=== PATIENT | male | born 1945 | race Caucasian/White ===

== ENCOUNTER 2021-10-25 17:50 | Observation (INO) ==
--- NOTE | 2021-10-25 17:52 | Emergency Department Note ---
HPI General Chief complaint: Altered Mental Status Stated complaint: Confusion, falls, failure to thrive Time Seen by Provider: 10/25/21 17:52 Source: patient and family Mode of arrival: ambulatory Limitations: altered mental status History of Present Illness HPI Narrative: 76-year-old male with past medical history of Parkinson's disease, BPH, and dementia presenting with frequent falls and confusion. Patient is here with his durable power of workers compensation attorney and Adult Protective Services who have been trying to help him at home. For the last few months he has had frequent falls and increasing visual and auditory hallucinations. He also has been eating and drinking less. His power of workers compensation attorney states that he tries to bring in food a few times a week but the patient seems to be slowly getting worse. They are concerned that he cannot perform his ADLs at home and may need placement in a facility. No report of any recent fever, cough, vomiting, or chest pain. He is not on anticoagulation. Patient denies pain anywhere and has no complaints currently. Related Data Home Medications Medication Instructions Recorded Confirmed carbidopa ER 25 mg-levodopa 100 mg 1 tab PO QHS #60 tabs 12/15/18 09/27/21 tablet,extended release carbidopa 25 mg-levodopa 100 mg 1.5 tab PO .COMPLEX #405 tabs 11/17/20 09/27/21 tablet acetaminophen 500 mg tablet 250 mg PO Q6H PRN 12/26/20 09/27/21 (Tylenol Extra Strength) rivastigmine tartrate 1.5 mg 1.5 mg PO BID 08/17/21 09/27/21 capsule Previous Rx's Medication Instructions Recorded finasteride 5 mg tablet 5 mg PO QDAY #90 tabs 07/12/21 tamsulosin 0.4 mg capsule 0.4 mg PO BID #180 caps 07/12/21 zolpidem 10 mg tablet 10 mg PO QHS #90 tabs 08/28/21 Allergies Allergy/AdvReac Type Severity Reaction Status Date / Time omeprazole [From Prilosec] AdvReac Unknown Unknown Verified 10/25/21 17:54 Pineapple AdvReac Unknown Throat Verified 10/25/21 17:54 Swelling and Hives Review of Systems ROS ROS Narrative: Narrative: Limitations: ROS unobtainable due to patients medical condition Cardiovascular: Denies chest pain Gastrointestinal: Denies abdominal pain Genitourinary: Denies dysuria Neurological: Denies headache PFSH Narrative Patient History Narrative: Narrative: Medical/Surgical/Family History All Active Problems (Updated 10/25/21 @ 19:29 by Andres Candelaria MD) Falls (Acute) Decrease in appetite (Acute) Delusional disorder (Acute) Parkinson's disease (Acute) 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) Basal cell carcinoma of back (Chronic 11/16/10) 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) Chest pain (Chronic) Collagenous colitis (Chronic) Depression (Chronic) Dyspnea (Chronic) Edema (Chronic) Erectile dysfunction (Chronic) Fracture of finger, closed (Chronic) Headache (Chronic) Hemorrhoids (Chronic) Hoarseness (Chronic) Hypertension, essential (Chronic) Insomnia (Chronic) Kidney stones (Chronic) Laryngopharyngeal reflux disease (Chronic) Obstructive uropathy (Chronic) Orthostasis (Chronic) Proctitis (Chronic) Rectal fissure (Chronic) Rectal leakage (Chronic) Sarcoidosis (Chronic) Spleen injury (Chronic) 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) Tendinitis (Chronic) Tinnitus (Chronic) Myxomatous mitral valve (Chronic) Stress (Chronic) Right buttock pain (Chronic) Muscle spasm of right lower extremity (Chronic) Skin lesion (Chronic) Spasm of muscle of lower back (Chronic) Skin cancer (Chronic) Pelvic fracture (Chronic) Seborrheic keratosis (Chronic) Anxiety (Chronic) Colon adenoma (Chronic) Memory Loss (Chronic) Slurred speech (Chronic) Change in Voice (Chronic) Balance disorder (Chronic) Gait instability (Chronic) Tremor (Chronic) Labile blood pressure (Chronic) CVA (cerebral vascular accident) (Chronic) Weight loss (Chronic) Parkinson disease (Chronic) Easy bruising (Chronic) Actinic keratoses (Chronic) Cold intolerance (Chronic) Orthostasis (Chronic) Increased urinary frequency (Chronic) Medicare annual wellness visit, subsequent (Chronic) Labile hypertension (Chronic) Bilateral buttock pain (Chronic) Lumbosacral radiculopathy due to degenerative joint disease of spine (Chronic) Acute low back pain due to spinal disorder (Chronic) Syncope and collapse (Acute) Radiculopathy, lumbar region (Acute) Glaucoma (Acute) Lumbar stenosis with neurogenic claudication (Acute) Labile blood pressure (Chronic) Hypotension (Acute) BPH loc w urin obs/LUTS (Acute) Medical History Actinic keratoses 3 AK's treated today, tolerated well. Verbal consent obtained after discussion of risks, benefits, and alternatives. Basal cell carcinoma of back (11/16/10) Right scapula residual basal cell carcinoma; negative margins of resection. Also tip of nose in 12/10/2013. Bilateral buttock pain Chest pain Cold intolerance Collagenous colitis Depression Dyspnea Easy bruising Edema Erectile dysfunction Fracture of finger, closed 3 fingers Glaucoma Headache (09/07/2014-Bakari) Hemorrhoids Hoarseness Hypertension, essential Increased urinary frequency Secondary to Parkinson's disease. Patient needs to establish with a new urologist. Will refer to Dr. Bradley. Insomnia Kidney stones (09/07/14-Bakari) Laryngopharyngeal reflux disease Patient would like to change from Zantac to Pepcid due to the recall. Lumbar stenosis with neurogenic claudication Status post epidural steroid injection with Dr. Vance. Patient denies pain since the injection No longer requiring pain medications Will follow up as needed with Dr. Vance Medicare annual wellness visit, subsequent Mixed basal-squamous cell carcinoma (06/28/04) Right abdomen- Myxomatous mitral valve Mild Obstructive uropathy Orthostasis Parkinson disease Continuing on Sinemet, managed by Dr. Coker Sinemet dose was decreased which initially helped with orthostasis, but symptoms continue to worsen Proctitis Radiculopathy, lumbar region Rectal fissure Rectal leakage Sarcoidosis Remote Spleen injury Remote. Prevnar 12/28/16 Squamous cell cancer of skin of forearm (11/04/08) Left forearm Tendinitis Adductor-Right Thigh Tinnitus Surgical History History of biopsy (12/01/13) 12/01/13 & 12/10/13 LT nasal tip History of bronchoscopy (05/23/01) Bronchoscopy and transbronchial biopsy History of colonoscopy (01/04/09) 01/04/09 Collagenous colitis. 02/27/17 diverticuli. Adenoma. Five-year follow-up. History of elbow surgery Right elbow History of inguinal hernia repair (02/18/12) Bilateral inguinal hernias History of lithotripsy for kidney stones History of surgical removal of skin lesion (06/28/04) 06/28/04, 11/10/07, 11/12/08 Right abdomen- basosquamous cell carcinoma/right mid back-verruca vulgaris/left forearm- squamous cell carcinoma in situ; margins negative for malignancy and left posterior ear- seborrheic keratosis Status post biopsy of skin (11/16/10) Right scapula-residual basal cell carcinoma; negative margins of resection Status post cataract extraction of both eyes with insertion of intraocular lens 2018 at [facility]Dr Mcneil Status post hemorrhoidectomy Family History Father Heart disease Mother Heart disease Hypertension Family/Other Tuberculosis, pulmonary His aunt. He lived with the aunt for a while. Social History Smoking Status: Never smoker Alcohol Intake Frequency: a few times a week Substance Use: does not use Exam Narrative Narrative: Narrative: General Limitations: altered mental status General appearance: Present alert and in no apparent distress Head Head: Present atraumatic and normocephalic Eye Eye: Present normal appearance, PERRL and EOMI; Absent scleral icterus or conjunctival injection ENT ENT: Present mucous membranes moist Neck Neck: Present normal inspection, full ROM and trachea midline; Absent tenderness or meningismus Chest Chest: Present symmetric chest wall rise Respiratory Respiratory: Present normal lung sounds bilaterally; Absent respiratory dis tress, rales/crackles, wheezes, stridor or accessory muscle use Cardiovascular Cardiovascular: Present regular rate and normal rhythm; Absent systolic murmur or diastolic murmur Adbominal Abdominal: Present soft; Absent distention, tenderness, guarding, rebound or rigidity Extremities Extremities: Present other (Old healing abrasions noted on arms); Absent pretibial edema Back Back: Absent CVA tenderness (R) or CVA tenderness (L) Neurological Neurological: Present alert and other (Oriented x2); Absent motor sensory deficit Expanded Neurological CRANIAL NERVES: EOM function (II, III, IV, ): Normal, facial sensation (V): Normal, facial palsy (VII): Normal, gag reflex (IX): Normal, spinal accessory function (XI): Normal and tongue deviation (XII): Normal Motor strength - LUE: 5/5 Motor strength - RUE: 5/5 Motor strength - LLE: 5/5 Motor strength - RLE: 5/5 SENSORY EXAM UPPER EXTREMITY: Normal: light touch SENSORY EXAM LOWER EXTREMITY: Normal: light touch Coma Scale Eye Opening: Spontaneous Coma Scale Motor Response: Obeys Commands Coma Scale Verbal Response: Oriented Coma Scale Total: 15 Psychiatric Psychiatric: Present normal affect and normal mood Skin Skin: Present warm (WNL) and dry Course Vital Signs Vital signs: Vital Signs Temperature 97.8 F 10/25/21 17:51 Pulse Rate 67 10/25/21 17:51 Respiratory Rate 20 10/25/21 17:51 Blood Pressure 131/82 10/25/21 17:51 Pulse Oximetry (%) 97 10/25/21 17:51 Oxygen Delivery Method 10/25/21 17:51 Temperature 97.8 F 10/25/21 17:51 Pulse Rate 65 10/25/21 19:15 Respiratory Rate 20 10/25/21 17:51 Blood Pressure 107/71 10/25/21 18:48 Pulse Oximetry (%) 100 10/25/21 19:15 Oxygen Delivery Method 10/25/21 17:51 MDM MDM Narrative Medical decision making narrative: 76-year-old male presenting with worsening confusion and dementia. Vital signs are normal. He is confused but calm and cooperative in the ED. No focal neurologic deficits noted. Normal saline bolus ordered. Will obtain labs, UA, chest x-ray, EKG, and CT brain to evaluate. EKG shows no ischemic changes or arrhythmias. Will sign out patient to oncoming , Dr. Lagunas. Lab Data Result diagrams: 10/25/21 18:21 10/25/21 18:21 Labs: Lab Results 10/25/21 Range/Units 18:21 WBC 7.9 (4.5-11.0) K/mcL RBC 4.37 L (4.63-6.08) M/mcL Hgb 13.1 L (13.7-17.5) g/dL Hct 39.8 L (40.1-51.0) % MCV 91.1 (80.0-100.0) fL MCH 30.0 (26.0-34.0) pg MCHC 32.9 (31.0-36.0) g/dL RDW 12.8 (11.5-14.5) % Plt Count 234 (140-440) K/mcL MPV 10.3 (7.4-10.4) fL Immature Gran % (Auto) 0.3 (0.0-0.5) % Neut % (Auto) 74.6 (38.0-78.0) % Lymph % (Auto) 12.6 L (15.5-49.0) % [place] % (Auto) 11.4 (1.0-12.0) % Eos % (Auto) 0.8 (0.0-7.0) % Baso % (Auto) 0.3 (0.0-2.0) % Lymph # (Auto) 0.99 L (1.50-4.80) K/mcL [place] # (Auto) 0.90 (0.10-0.90) K/mcL Eos # (Auto) 0.06 (0.00-0.70) K/mcL Baso # (Auto) 0.02 (0.00-0.30) K/mcL Immature Gran # 0.02 (0.00-0.05) K/mcl Absolute Neutrophils 5.90 (1.80-8.00) K/mcL EKG Data EKG #1: EKG attestation: Yes I reviewed and interpreted this EKG. and Yes There are no EKG findings of acute coronary syndrome EKG results narrative: Sinus rhythm at [address] elevation or depression. No arrhythmias noted Interpretation: no acute changes Discharge Plan Patient/Caregiver Discharge Instructions Pt seen by PLASTER MODEL AND MOLD MAKER/PA only: No Clinical Impression: Falls Patient Disposition: Still a Patient Follow up with: Luis Alberto Mack DO [Primary Care Provider] - Prescriptions: No Action zolpidem 10 mg tablet 10 mg PO QHS Qty: 90 1RF Hold Instructions: Doctor's Order carbidopa-levodopa 25-100 mg tablet extended release 1 tab PO QHS Qty: 60 carbidopa-levodopa 25-100 mg tablet 1.5 tab PO .COMPLEX Qty: 405 Rx Instructions: 1.5 tabs PO at 0800 and 1600, and 1 tablet at 1200 and 2000; rivastigmine tartrate 1.5 mg capsule 1.5 mg PO BID acetaminophen [Tylenol Extra Strength] 500 mg tablet 250 mg PO Q6H PRN tamsulosin 0.4 mg capsule 0.4 mg PO BID Qty: 180 6RF finasteride 5 mg tablet 5 mg PO QDAY Qty: 90 3RF
[2021-10-25] MEDS ORDERED: 0.9 % SODIUM CHLORIDE 1,000 ML IV ONE ×2 (18:08→21:30)
[2021-10-25 18:57] LABS: Basophils # (Auto) 0.02 K/mcL (0.00-0.30); Basophils % (Auto) 0.3 % (0.0-2.0); Eosinophils # (Auto) 0.06 K/mcL (0.00-0.70); Eosinophils % (Auto) 0.8 % (0.0-7.0); Hematocrit 39.8 % (40.1-51.0); Hemoglobin 13.1 g/dL (13.7-17.5); Lymphocytes # (Auto) 0.99 K/mcL (1.50-4.80); Lymphocytes % (Auto) 12.6 % (15.5-49.0); Mean Cell Volume 91.1 fL (80.0-100.0); Mean Corpuscular HGB Conc 32.9 g/dL (31.0-36.0); Mean Platelet Volume 10.3 fL (7.4-10.4); Monocytes % (Auto) 11.4 % (1.0-12.0); Neutrophils % (Auto) 74.6 % (38.0-78.0); Platelet Count 234 K/mcL (140-440); RBC 4.37 M/mcL (4.63-6.08); Red Cell Distribution Width 12.8 % (11.5-14.5); WBC 7.9 K/mcL (4.5-11.0)
[2021-10-25 19:35] LABS: ALT/SGPT 26 U/L (<40); AST/SGOT 24 U/L (<40); Albumin/Globulin Ratio 1.5 (1.0-2.3); Alkaline Phosphatase 97 U/L (39-117); Bilirubin,Total 0.5 mg/dL (0.1-1.0); Blood Urea Nitrogen 27 mg/dL (8-23); Calcium 9.3 mg/dL (8.6-10.4); Carbon Dioxide 27 mmol/L (22-30); Chloride 105 mmol/L (96-108); Globulin 2.6 gm/dL (2.2-3.7); Glomerular Filtration Rate 91; Glucose 109 mg/dL (70-105)
--- NOTE | 2021-10-25 20:25 | Emergency Department Note ---
Course Course Course Narrative: I assumed care of patient at [address] Candelaria. Labs were obtained and were unremarkable CT of the head obtained with image reviewed on self with no acute intracranial findings. Chest x-ray obtained with image reviewed myself with no acute abnormalities. Case was discussed with hospitalist who has accepted patient for admission as he will most likely need to be evaluated by PT/OT for possible placement due to his dementia and altered mental status. Consultations Consultation #1: Case discussed with hospitalist who has agreed to admit the patient. Time: 20:16 Vital Signs Vital signs: Vital Signs Temperature 97.8 F 10/25/21 17:51 Pulse Rate 67 10/25/21 17:51 Respiratory Rate 20 10/25/21 17:51 Blood Pressure 131/82 10/25/21 17:51 Pulse Oximetry (%) 97 10/25/21 17:51 Oxygen Delivery Method 10/25/21 17:51 Temperature 97.8 F 10/25/21 17:51 Pulse Rate 74 10/25/21 20:04 Respiratory Rate 20 10/25/21 17:51 Blood Pressure 107/71 10/25/21 18:48 Pulse Oximetry (%) 100 10/25/21 20:04 Oxygen Delivery Method 10/25/21 17:51 MDM MDM Narrative Medical decision making narrative: Narrative: Differential Diagnosis Differential Diagnosis: Altered mental status, dementia, frequent falls, inability to care for self Medical Records Medical records reviewed: Yes I reviewed the patient's medical records. Lab Data Lab results reviewed: Yes I reviewed the patient's lab results. Result diagrams: 10/25/21 18:21 10/25/21 18:21 Labs: Lab Results 10/25/21 10/25/21 Range/Units 18:21 18:21 WBC 7.9 (4.5-11.0) K/mcL RBC 4.37 L (4.63-6.08) M/mcL Hgb 13.1 L (13.7-17.5) g/dL Hct 39.8 L (40.1-51.0) % MCV 91.1 (80.0-100.0) fL MCH 30.0 (26.0-34.0) pg MCHC 32.9 (31.0-36.0) g/dL RDW 12.8 (11.5-14.5) % Plt Count 234 (140-440) K/mcL MPV 10.3 (7.4-10.4) fL Immature Gran % (Auto) 0.3 (0.0-0.5) % Neut % (Auto) 74.6 (38.0-78.0) % Lymph % (Auto) 12.6 L (15.5-49.0) % [place] % (Auto) 11.4 (1.0-12.0) % Eos % (Auto) 0.8 (0.0-7.0) % Baso % (Auto) 0.3 (0.0-2.0) % Lymph # (Auto) 0.99 L (1.50-4.80) K/mcL [place] # (Auto) 0.90 (0.10-0.90) K/mcL Eos # (Auto) 0.06 (0.00-0.70) K/mcL Baso # (Auto) 0.02 (0.00-0.30) K/mcL Immature Gran # 0.02 (0.00-0.05) K/mcl Absolute Neutrophils 5.90 (1.80-8.00) K/mcL Sodium 140 (133-145) mmol/L Potassium 3.9 (3.3-5.1) mmol/L Chloride 105 (96-108) mmol/L Carbon Dioxide 27 (22-30) mmol/L Anion Gap 8.0 (8.0-16.0) BUN 27 H (8-23) mg/dL Creatinine 0.7 (0.7-1.2) mg/dL GFR Calculation 91 Glucose 109 H (70-105) mg/dL Calcium 9.3 (8.6-10.4) mg/dL Total Bilirubin 0.5 (0.1-1.0) mg/dL AST 24 (<40) U/L ALT 26 (<40) U/L Alkaline Phosphatase 97 (39-117) U/L Total Protein 6.6 (5.9-8.4) gm/dL Albumin 4.0 (3.2-5.2) gm/dL Globulin 2.6 (2.2-3.7) gm/dL Albumin/Globulin Ratio 1.5 (1.0-2.3) Radiology Data Radiology results reviewed: Yes I reviewed the patient's radiology results. Radiology results narrative: Chest x-ray obtained with image reviewed myself, no acute cardiopulmonary findings Core Measures AMI Core Measures Followed: Yes Discharge Plan Patient/Caregiver Discharge Instructions Pt seen by FLASK HANDLER/PA only: No Clinical Impression: Falls, Altered mental status, Unable to care for self Patient Disposition: Xfer As Inpt ([facility]) Condition: Fair Follow up with: Luis Alberto Mack DO [Primary Care Provider] - Prescriptions: No Action zolpidem 10 mg tablet 10 mg PO QHS Qty: 90 1RF Hold Instructions: Doctor's Order carbidopa-levodopa 25-100 mg tablet extended release 1 tab PO QHS Qty: 60 carbidopa-levodopa 25-100 mg tablet 1.5 tab PO .COMPLEX Qty: 405 Rx Instructions: 1.5 tabs PO at 0800 and 1600, and 1 tablet at 1200 and 2000; rivastigmine tartrate 1.5 mg capsule 1.5 mg PO BID acetaminophen [Tylenol Extra Strength] 500 mg tablet 250 mg PO Q6H PRN tamsulosin 0.4 mg capsule 0.4 mg PO BID Qty: 180 6RF finasteride 5 mg tablet 5 mg PO QDAY Qty: 90 3RF
--- NOTE | 2021-10-25 20:29 | Internal Med History&Physical ---
HPI History of Present Illness Patient information: Note initiated : 10/25/21 at 8:24 pm Service Date, if different from initiated Date: [] Patient: Nomi Soria a 76 y/o M admitted on for Confusion, falls, failure to thrive. Chief Complaint: [] History of present illness: Mr. Soria is a 76 year old M Presents the ED with history of falling and increased weakness and poor appetite. Patient lives alone and has history of Parkinson's disease with dementia and confusion with hallucination at time. His power of ip technology transactions attorney and Adult Protective Services have been tried to help him at home. He has been eating and drinking less. APS concerned that he is unable to perform ADLs and needs placement. Regarding his Parkinson's disease his neurologist added Exelon for his Parkinson dementia, per discussion with PCP the neck step was possible antipsychotics. But the most immediate concern is that the patient is unable to care for himself and needs placement. Patient denies any chest pain or shortness of breath at this time. Does admit to weakness and falling. Work-up in the ED did show an elevated BUN to creatinine ratio. Vital signs are stable. Review of Systems: Pertinent positives as above. Denies headache/fever/chills/nausea/v omiting/chest or abdominal pain/cough/dyspnea/diarrhea. 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) Chest pain (Chronic) Collagenous colitis (Chronic) Depression (Chronic) Dyspnea (Chronic) Edema (Chronic) Erectile dysfunction (Chronic) Fracture of finger, closed (Chronic) Headache (Chronic) Hemorrhoids (Chronic) Hoarseness (Chronic) Hypertension, essential (Chronic) Insomnia (Chronic) Kidney stones (Chronic) Laryngopharyngeal reflux disease (Chronic) Obstructive uropathy (Chronic) Orthostasis (Chronic) Proctitis (Chronic) Rectal fissure (Chronic) Rectal leakage (Chronic) Sarcoidosis (Chronic) Spleen injury (Chronic) 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) Tendinitis (Chronic) Tinnitus (Chronic) Myxomatous mitral valve (Chronic) Stress (Chronic) Right buttock pain (Chronic) Muscle spasm of right lower extremity (Chronic) Skin lesion (Chronic) Spasm of muscle of lower back (Chronic) Skin cancer (Chronic) Pelvic fracture (Chronic) Seborrheic keratosis (Chronic) Anxiety (Chronic) Colon adenoma (Chronic) Memory Loss (Chronic) Slurred speech (Chronic) Change in Voice (Chronic) Balance disorder (Chronic) Gait instability (Chronic) Tremor (Chronic) Labile blood pressure (Chronic) CVA (cerebral vascular accident) (Chronic) Weight loss (Chronic) Parkinson disease (Chronic) Easy bruising (Chronic) Actinic keratoses (Chronic) Cold intolerance (Chronic) Orthostasis (Chronic) Increased urinary frequency (Chronic) Medicare annual wellness visit, subsequent (Chronic) Labile hypertension (Chronic) Bilateral buttock pain (Chronic) Lumbosacral radiculopathy due to degenerative joint disease of spine (Chronic) Acute low back pain due to spinal disorder (Chronic) Syncope and collapse (Acute) Radiculopathy, lumbar region (Acute) Glaucoma (Acute) Lumbar stenosis with neurogenic claudication (Acute) Labile blood pressure (Chronic) Hypotension (Acute) BPH loc w urin obs/LUTS (Acute) Medical History Actinic keratoses 3 AK's treated today, tolerated well. Verbal consent obtained after discussion of risks, benefits, and alternatives. Basal cell carcinoma of back (11/16/10) Right scapula residual basal cell carcinoma; negative margins of resection. Also tip of nose in 12/10/2013. Bilateral buttock pain Chest pain Cold intolerance Collagenous colitis Depression Dyspnea Easy bruising Edema Erectile dysfunction Fracture of finger, closed 3 fingers Glaucoma Headache (09/07/2014-Bak[facility]) Hemorrhoids Hoarseness Hypertension, essential Increased urinary frequency Secondary to Parkinson's disease. Patient needs to establish with a new urologist. Will refer to Dr. Bradley. Insomnia Kidney stones (09/07/14-Bakari) Laryngopharyngeal reflux disease Patient would like to change from Zantac to Pepcid due to the recall. Lumbar stenosis with neurogenic claudication Status post epidural steroid injection with Dr. Vance. Patient denies pain since the injection No longer requiring pain medications Will follow up as needed with Dr. Vance Medicare annual wellness visit, subsequent Mixed basal-squamous cell carcinoma (06/28/04) Right abdomen- Myxomatous mitral valve Mild Obstructive uropathy Orthostasis Parkinson disease Continuing on Sinemet, managed by Dr. Coker Sinemet dose was decreased which initially helped with orthostasis, but symptoms continue to worsen Proctitis Radiculopathy, lumbar region Rectal fissure Rectal leakage Sarcoidosis Remote Spleen injury Remote. Prevnar 12/28/16 Squamous cell cancer of skin of forearm (11/04/08) Left forearm Tendinitis Adductor-Right Thigh Tinnitus Surgical History History of biopsy (12/01/13) 12/01/13 & 12/10/13 LT nasal tip History of bronchoscopy (05/23/01) Bronchoscopy and transbronchial biopsy History of colonoscopy (01/04/09) 01/04/09 Collagenous colitis. 02/27/17 diverticuli. Adenoma. Five-year follow-up. History of elbow surgery Right elbow History of inguinal hernia repair (02/18/12) Bilateral inguinal hernias History of lithotripsy for kidney stones History of surgical removal of skin lesion (06/28/04) 06/28/04, 11/10/07, 11/12/08 Right abdomen- basosquamous cell carcinoma/right mid back-verruca vulgaris/left forearm- squamous cell carcinoma in situ; margins negative for malignancy and left posterior ear- seborrheic keratosis Status post biopsy of skin (11/16/10) Right scapula-residual basal cell carcinoma; negative margins of resection Status post cataract extraction of both eyes with insertion of intraocular lens [address] [facility]-Dr Mcneil Status post hemorrhoidectomy Family History Father Heart disease Mother Heart disease Hypertension Family/Other Tuberculosis, pulmonary His aunt. He lived with the aunt for a while. 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 other: 2 children smoking status: Former smoker alcohol intake frequency: a few times a week substance use type: does not use MEDS/ALLERGIES Home Medications and Allergies Home Medications Medication Instructions Recorded Confirmed Type carbidopa ER 25 mg-levodopa 100 mg 1 tab PO QHS #60 tabs 12/15/18 09/27/21 History tablet,extended release carbidopa 25 mg-levodopa 100 mg 1.5 tab PO .COMPLEX #405 tabs 11/17/20 09/27/21 History tablet acetaminophen 500 mg tablet 250 mg PO Q6H PRN 12/26/20 09/27/21 History (Tylenol Extra Strength) finasteride 5 mg tablet 5 mg PO QDAY #90 tabs 07/12/21 09/27/21 Rx tamsulosin 0.4 mg capsule 0.4 mg PO BID #180 caps 07/12/21 09/27/21 Rx rivastigmine tartrate 1.5 mg 1.5 mg PO BID 08/17/21 09/27/21 History capsule zolpidem 10 mg tablet 10 mg PO QHS #90 tabs 08/28/21 09/27/21 Rx Allergies Allergy/AdvReac Type Severity Reaction Status Date / Time omeprazole [From Prilosec] AdvReac Unknown Unknown Verified 10/25/21 17:54 Pineapple AdvReac Unknown Throat Verified 10/25/21 17:54 Swelling and Hives EXAM Constitutional Vitals: Temp Pulse Resp BP Pulse Ox O2 Del Method 97.8 F 74 20 107/71 100 10/25/21 17:51 10/25/21 20:04 10/25/21 17:51 10/25/21 18:48 10/25/21 20:04 10/25/21 17:51 Exam: General: Alert, Awake, No acute Distress Eyes/N/T: EOMI, PERRL, dry MM Head/Neck: neck supple, normocephalic atraumatic CV: RRR, No murmurs, normal s1/s2 Pulm: Clear b/l, no wheezing/rhonchi/rales Abd: soft, nontender, +BS x4 Ext: no clubbing/cyanosis/edema Neuro: Alert, no focal deficits, moves all extremities, CN 2-12 grossly intact, symmetrical strength b/l upper/lower, sensations intact b/l upper/lower, hand tremor noted at rest Skin: warm/dry DATA Data Completed and Pending Labs: Labs from last 24 hours 10/25/21 10/25/21 10/25/21 19:50 18:21 18:21 WBC 7.9 RBC 4.37 L Hgb 13.1 L Hct 39.8 L MCV 91.1 MCH 30.0 MCHC 32.9 RDW 12.8 Plt Count 234 MPV 10.3 Immature Gran % (Auto) 0.3 Neut % (Auto) 74.6 Lymph % (Auto) 12.6 L [place] % (Auto) 11.4 Eos % (Auto) 0.8 Baso % (Auto) 0.3 Lymph # (Auto) 0.99 L [place] # (Auto) 0.90 Eos # (Auto) 0.06 Baso # (Auto) 0.02 Immature Gran # 0.02 Absolute Neutrophils 5.90 Sodium 140 Potassium 3.9 Chloride 105 Carbon Dioxide 27 Anion Gap 8.0 BUN 27 H Creatinine 0.7 GFR Calculation 91 Glucose 109 H Calcium 9.3 Total Bilirubin 0.5 AST 24 ALT 26 Alkaline Phosphatase 97 Total Protein 6.6 Albumin 4.0 Globulin 2.6 Albumin/Globulin Ratio 1.5 Urine Color Pending Urine Appearance Pending Urine pH Pending Ur Specific [place] Pending Urine Protein Pending Urine Glucose (UA) Pending Urine Ketones Pending Urine Occult Blood Pending Urine Nitrate Pending Urine Bilirubin Pending Urine Urobilinogen Pending Ur Leukocyte Esterase Pending A/P Narrative A/P Narrative: A: *Falling/generalized weakness/deconditioning: *Inability to care for self at home: *Parkinson's dz w/Dementia and hallucinations/confusion at times: -Neurologist has been adjusting meds, started rivastigmine for parkinson's dementia w/hallucinations *BPH: *Volume depletion: * P: -IVF, f/u chemistry -pt/ot -CM for placement -cont home meds -Dietary consult -Home medication reconciliation -ppx: lovenox Time Spent With Patient Time: Total time spent is greater than 50% in coordination of care (as documented) at patient's floor/unit and/or counseling patient:
[2021-10-25 21:17] LABS: Appearance,Urine Clear (Clear); Bilirubin,Urine Negative (Negative); Calcium Oxalate Crystals,Urine MANY /hpf; Color,Urine Yellow; Culture Indicated,Urine No; Glucose,Urine (UA) Negative (Negative); Ketones,Urine Trace mg/dL (Negative); Leukocyte Esterase,Urine Negative /uL (Negative); Mucus,Urine MANY /hpf; Nitrate,Urine Negative (Negative); PH,Urine 5.5 (5.0-9.0); Specific Gravity,Urine >= 1.030 (1.000-1.035); Urine Blood Negative ery/mcL (Negative); Urine Hyaline Cast 11 /lph (0-2); Urine RBC 1 /hpf (0-3); Urine Squamous Epithelial Cell 0 /hpf (0-4); Urine WBC 1 /hpf (0-4); Urobilinogen,Urine Normal
[2021-10-25] MEDS ORDERED: HYDROcodone/APAP 5/325MG TABLET PO PRN (21:30)
[2021-10-25] MEDS ORDERED: POTASSIUM CHLORIDE 20 MEQ TABLET PO PRN ×2 (21:30)
[2021-10-25] MEDS ORDERED: MAGNESIUM SULFATE 2 GM/50 ML BAG IV PRN (21:30)
[2021-10-25] MEDS ORDERED: ONDANSETRON 4 MG/2 ML VIAL IV PRN (21:30)
[2021-10-25] MEDS ORDERED: POLYETHYLENE GLYCOL 3350 17 GM PACKET PO PRN (21:30)
[2021-10-25] MEDS ORDERED: SENNOSIDES 1 TABLET PO PRN (21:30)
[2021-10-25] MEDS ORDERED: IPRATROPIUM/ALBUTEROL 3 ML AMPUL.NEB NEB PRN (21:30)
[2021-10-25] MEDS ORDERED: POTASSIUM CHLORIDE 40 MEQ in DEXTROSE 5% IN WATER 500 ML IV PRN (21:30)
[2021-10-25] MEDS ORDERED: TAMSULOSIN 0.4 MG CAPSULE PO SCH (21:30)
[2021-10-25] MEDS ORDERED: OLANZapine 5 MG TABLET PO PRN (21:30)
[2021-10-25] MEDS: DOCUSATE SODIUM 100 MG CAPSULE PO SCH (22:34)
[2021-10-25] MEDS: 0.9 % SODIUM CHLORIDE 10 ML SYRINGE IV SCH (22:34)
[2021-10-25] MEDS: CARBIDOPA/LEVODOPA 25/100 TABLET PO SCH (22:34)
[2021-10-25] MEDS: ZOLPIDEM 5 MG TABLET PO PRN (22:34)
[2021-10-25] MEDS: MELATONIN 3 MG TABLET PO SCH (22:34)
--- NOTE | 2021-10-26 04:14 | XRay Report ---
CLINICAL INFORMATION: Trauma-fall COMPARISON: 10/08/2017 TECHNIQUE: Portable FINDINGS: The heart size, mediastinum and pulmonary vessels are unremarkable. Few tiny perihilar calcified granulomas seen as before. No infiltrates.. There are no effusions. The bones and soft tissues are within normal limits. IMPRESSION: Normal chest. Interpreted and Authenticated by: Luis Alberto Santos 10/26/21
--- NOTE | 2021-10-26 04:23 | Cat Scan Report ---
CLINICAL INFORMATION: Trauma confusion COMPARISON: 08/12/2014 TECHNIQUE: 2.5 mm helical slices were obtained in the skull base to vertex. Following reconstruction, axial reformatted images were reviewed at bone and parenchymal windows. The exam was performed using radiation dose optimization techniques including, but not limited to, automated exposure control, adjustment of the mA and/or kV according to patient size and use of iterative reconstruction technique. FINDINGS: The ventricles, sulci, fissures, and cisterns are symmetrically enlarged compatible with mild age-related atrophy. No extra-axial fluid collections are identified. Mild patchy chronic ischemic changes, in the deep cerebral white matter, are expected for age. There is no hemorrhage, mass effect, or edema. Bone windows show no osseous abnormality. IMPRESSION: Mild atrophy and chronic ischemic changes in the deep cerebral white matter-expected for age. No acute findings Interpreted and Authenticated by: Luis Alberto Santos 10/26/21
[2021-10-26] MEDS: 0.9 % SODIUM CHLORIDE 10 ML SYRINGE IV SCH ×3 (05:05→20:48)
[2021-10-26 06:58] LABS: ALT/SGPT 6 U/L (<40); AST/SGOT 20 U/L (<40); Albumin 3.6 gm/dL (3.2-5.2); Albumin/Globulin Ratio 1.6 (1.0-2.3); Alkaline Phosphatase 88 U/L (39-117); Bilirubin,Direct < 0.2 mg/dL (0-0.3); Bilirubin,Total 0.8 mg/dL (0.1-1.0); Blood Urea Nitrogen 16 mg/dL (8-23); Calcium 8.6 mg/dL (8.6-10.4); Carbon Dioxide 24 mmol/L (22-30); Chloride 108 mmol/L (96-108); Globulin 2.3 gm/dL (2.2-3.7); Glomerular Filtration Rate 114; Glucose 91 mg/dL (70-105); Lactate Dehydrogenase 175 U/L (135-225); Phosphorous 2.3 mg/dL (2.5-4.5); Triglycerides 42 mg/dL (<150); Uric Acid 3.1 mg/dL (2.5-8.0)
--- NOTE | 2021-10-26 07:44 | Internal Med Progress Note ---
SUBJECTIVE Subjective Patient information: Note initiated : 10/26/21 at 7:41 am Service Date, if different from initiated Date: [] Patient: Nomi Soria a 76 y/o M admitted on 10/25/21 for Confusion, falls, failure to thrive. Chief Complaint: [] Interval history: History of present illness: Mr. Soria is a 76 year old M Presents the ED with history of falling and increased weakness and poor appetite. Patient lives alone and has history of Parkinson's disease with dementia and confusion with hallucination at time. His power of deputy prosecuting attorney and Adult Protective Services have been tried to help him at home. He has been eating and drinking less. APS concerned that he is unable to perform ADLs and needs placement. Regarding his Parkinson's disease his neurologist added Exelon for his Parkinson dementia, per discussion with PCP the neck step was possible antipsychotics. But the most immediate concern is that the patient is unable to care for himself and needs placement. Patient denies any chest pain or shortness of breath at this time. Does admit to weakness and falling. Work-up in the ED did show an elevated BUN to creatinine ratio. Vital signs are stable. 10/26 Needed frequent orientation overnight. No other acute events. Follow-up lab work. Ate most of his breakfast. Review of Systems: denies headache/fever/chills/nausea/vomiting/chest or abdominal pain/cough/dyspnea/diarrhea. Otherwise see above. Constitutional Vitals: Vital Signs Temp Pulse Resp BP Pulse Ox O2 Del Method 97.8 F 59 L 16 136/72 98 10/26/21 02:43 10/26/21 02:43 10/26/21 02:43 10/26/21 02:43 10/26/21 02:43 10/26/21 02:43 Period Temp Pulse Resp BP Sys/Levin Pulse Ox O2 Del Method O2 Flow Rate Last 24 Hr 97.8 F-98.6 F 59-74 16-20 94-141/44-89 95-100 Room Air-Room Air Intake and Output 10/25/21 10/26/21 10/26/21 21:59 05:59 13:59 Intake Total 1000 50 Output Total 1027 Balance 1000 -977 Weight 64.047 kg Intake & Output: Intake & Output 10/25/21 10/26/21 10/26/21 21:59 05:59 13:59 Intake Total 1000 50 Output Total 1027 Balance 1000 -977 Weight 64.047 kg Intake: IV 1000 Sodium Chloride 0.9% 1,000 ml @ 1000 Wide Open IV BOLUS ONE Rx#: [id number] Oral 50 Output: Void Amount 1025 # of times incontinent of urine 2 Other: Urine Appearance Clear Urine Color Bright Yellow Exam: General: Alert, Awake, No acute Distress Eyes/N/T: EOMI, Head/Neck: neck supple, CV: RRR, No murmurs, normal s1/s2 Pulm: Clear b/l, no wheezing/rhonchi/rales Abd: soft, nontender, +BS x4 Ext: no clubbing/cyanosis/edema Neuro: Alert, no focal deficits, moves all extremities, hand tremor noted at rest, disoriented at times Skin: warm/dry OBJ DATA Labs CBC & Chem 7: 10/25/21 18:21 10/26/21 05:38 Labs: Abnormal Lab Results 10/26/21 10/25/21 10/25/21 05:38 19:50 18:21 RBC Hgb Hct Lymph % (Auto) Lymph # (Auto) Anion Gap 7.0 L BUN 27 H Creatinine 0.4 L Glucose 109 H Phosphorus 2.3 L Urine Protein 30 mg/dl A Urine Ketones Trace A Calcium Oxalate Crystal Many A Hyaline Casts 11 H Urine Mucus Many A 10/25/21 18:21 RBC 4.37 L Hgb 13.1 L Hct 39.8 L Lymph % (Auto) 12.6 L Lymph # (Auto) 0.99 L Anion Gap BUN Creatinine Glucose Phosphorus Urine Protein Urine Ketones Calcium Oxalate Crystal Hyaline Casts Urine Mucus Meds: Medications Acetaminophen (Acetaminophen 325 Mg Tablet) 650 mg PO Q6HP PRN; Protocol PRN Reason: Per Pain Protocol/Fever > 101 Hydrocodone Bitart/Acetaminophen (Hydrocodone/Apap 5/325mg Tablet) 1 tab PO Q4HP PRN PRN Reason: PAIN LEVEL 3-6 Albuterol/Ipratropium (Ipratropium/Albuterol 3 Ml Ampul.Neb) 3 ml NEB Q4HP PRN PRN Reason: Shortness Of Breath Carbidopa/Levodopa (Carbidopa/Levodopa 25/100 Tablet) 1.5 tab PO 0800,1600 MARAH Carbidopa/Levodopa (Carbidopa/Levodopa 25/100 Tablet) 1 tab PO 1200,2000 [facility] Last Admin: 10/25/21 22:34 Dose: 1 tab Docusate Sodium (Docusate Sodium 100 Mg Capsule) 100 mg PO BID [facility] Last Admin: 10/25/21 22:34 Dose: 100 mg Enoxaparin Sodium (Enoxaparin 40 Mg/0.4 Ml Syringe) 40 mg SQ DAILY [facility] Potassium Chloride 40 meq/ (Dextrose) 520 mls @ 130 mls/hr IV UD PRN PRN Reason: Potassium < 3 Magnesium Sulfate (Magnesium Sulfate) 2 gm in 50 mls @ 50 mls/hr IV UD PRN PRN Reason: Magnesium </= 1.6 Sodium Chloride (Sodium Chloride 0.9%) 1,000 mls @ 75 mls/hr IV .[id number] ONE Stop: 10/26/21 10:49 Last Admin: 10/25/21 21:56 Dose: 75 mls/hr Melatonin (Melatonin 3 Mg Tablet) 3 mg PO QHS [facility] Last Admin: 10/25/21 22:34 Dose: 3 mg Olanzapine (Olanzapine 5 Mg Tablet) 5 mg PO HS PRN PRN Reason: Agitation Ondansetron HCl (Ondansetron 4 Mg/2 Ml Vial) 4 mg IV Q4HP PRN PRN Reason: Nausea And Vomiting Polyethylene Glycol (Polyethylene Glycol 3350 17 Gm Packet) 17 gm PO DAILYP PRN PRN Reason: Constipation Potassium Chloride (Potassium Chloride 20 Meq Tablet) 40 meq PO UD PRN PRN Reason: Potssium is 3-3.5 Potassium Chloride (Potassium Chloride 20 Meq Tablet) 40 meq PO UD PRN PRN Reason: Potassium < 3 Senna (Sennosides 1 Tablet) 2 tab PO DAILYP PRN PRN Reason: Constipation Sodium Chloride (0.9 % Sodium Chloride 10 Ml Syringe) 10 ml IV Q8 [facility] Last Admin: 10/26/21 05:05 Dose: Not Given Tamsulosin HCl (Tamsulosin 0.4 Mg Capsule) 0.4 mg PO HS [facility] Last Admin: 10/25/21 22:33 Dose: 0.4 mg Zolpidem Tartrate (Zolpidem 5 Mg Tablet) 10 mg PO HSP PRN PRN Reason: Insomnia Last Admin: 10/25/21 22:34 Dose: 10 mg A/P Narrative A/P Narrative: A: *Falling/generalized weakness/deconditioning: *Inability to care for self at home: *Parkinson's dz w/Dementia and hallucinations/confusion at times: -Neurologist has been adjusting meds, started rivastigmine for parkinson's dementia w/hallucinations *BPH: *Volume depletion: *HTN: on ARB/Hydralazine P: -IVF, f/u chemistry -pt/ot -CM for placement -cont home meds -Dietary consult -f/u outpt with neurlogist for parkinson's dementia -ppx: lovenox Time Spent With Patient Time: Total time spent is greater than 50% in coordination of care (as documented) at patient's floor/unit and/or counseling patient:
[2021-10-26] MEDS ORDERED: hydrALAZINE 10 MG TABLET PO SCH (09:00)
[2021-10-26] MEDS ORDERED: LOSARTAN 50 MG TABLET PO SCH (09:00)
[2021-10-26] MEDS ORDERED: LACTATED RINGERS 250 ML IV ONE (10:03)
[2021-10-26] MEDS ORDERED: hydrALAZINE 20 MG/ML VIAL IV PRN (10:08)
[2021-10-26] MEDS: FINASTERIDE 5 MG TABLET PO SCH (10:08)
[2021-10-26] MEDS: CARBIDOPA/LEVODOPA 25/100 TABLET PO SCH ×4 (10:09→20:48)
[2021-10-26] MEDS: DOCUSATE SODIUM 100 MG CAPSULE PO SCH ×2 (10:11→20:45)
[2021-10-26] MEDS: RIVASTIGMINE TARTRATE 1.5 MG CAPSULE PO SCH ×3 (10:15→21:01)
[2021-10-26] MEDS: ACETAMINOPHEN 325 MG TABLET PO PRN ×2 (10:20→20:47)
[2021-10-26] MEDS: ENOXAPARIN 40 MG/0.4 ML SYRINGE SQ SCH (10:25)
[2021-10-26] MEDS ORDERED: CARBIDOPA/LEVODOPA 25/100 TABLET PO SCH (12:00)
[2021-10-26] MEDS: TAMSULOSIN 0.4 MG CAPSULE PO SCH ×2 (14:11→20:47)
[2021-10-26] MEDS: MELATONIN 3 MG TABLET PO SCH (20:46)
[2021-10-26] MEDS: ZOLPIDEM 5 MG TABLET PO PRN (20:53)
[2021-10-26] MEDS ORDERED: DONEPEZIL 10 MG TABLET PO SCH (21:00)
[2021-10-27] MEDS: 0.9 % SODIUM CHLORIDE 10 ML SYRINGE IV SCH ×2 (05:45→14:08)
--- NOTE | 2021-10-27 07:17 | Internal Med Progress Note ---
SUBJECTIVE Subjective Patient information: Note initiated : 10/27/21 at 7:13 am Service Date, if different from initiated Date: [] Patient: Nomi Soria a 76 y/o M admitted on 10/25/21 for Confusion, falls, failure to thrive. Chief Complaint: [] Interval history: History of present illness: Mr. Soria is a 76 year old M Presents the ED with history of falling and increased weakness and poor appetite. Patient lives alone and has history of Parkinson's disease with dementia and confusion with hallucination at time. His power of finance attorney and Adult Protective Services have been tried to help him at home. He has been eating and drinking less. APS concerned that he is unable to perform ADLs and needs placement. Regarding his Parkinson's disease his neurologist added Exelon for his Parkinson dementia, per discussion with PCP the neck step was possible antipsychotics. But the most immediate concern is that the patient is unable to care for himself and needs placement. Patient denies any chest pain or shortness of breath at this time. Does admit to weakness and falling. Work-up in the ED did show an elevated BUN to creatinine ratio. Vital signs are stable. 10/26 Needed frequent orientation overnight. No other acute events. Follow-up lab work. Ate most of his breakfast. 10/27 Patient seems to be feeling well. No overnight event or new complaints. Review of Systems: denies headache/fever/chills/nausea/vomiting/chest or abdominal pain/cough/dyspnea/diarrhea. Otherwise see above. Constitutional Vitals: Vital Signs Temp Pulse Resp BP Pulse Ox O2 Del Method 97.7 F 60 18 145/79 96 10/27/21 04:32 10/27/21 04:32 10/27/21 04:32 10/27/21 04:32 10/27/21 04:32 10/27/21 04:32 Period Temp Pulse Resp BP Sys/Levin Pulse Ox O2 Del Method O2 Flow Rate Last 24 Hr 97.7 F-98.6 F 58-76 16-20 75-148/53-90 94-98 Room Air-Room Air Intake and Output 10/26/21 10/27/21 10/27/21 21:59 05:59 13:59 Intake Total 400 Output Total 250 2550 Balance -250 -2150 Weight 65.952 kg Intake & Output: Intake & Output 10/26/21 10/27/21 10/27/21 21:59 05:59 13:59 Intake Total 400 Output Total 250 2550 Balance -250 -2150 Weight 65.952 kg Intake: Oral 400 Output: Void Amount 250 2550 Other: Meal Dinner Percent of Meal Consumed 100% Feeding Ability Independent Urine Appearance Clear Clear Urine Color Pale Pale Urine Odor Normal Normal # Voids 1 # Bowel Movements 0 Exam: General: Alert, Awake, No acute Distress Eyes/N/T: EOMI, Head/Neck: neck supple, CV: RRR, No murmurs, normal s1/s2 Pulm: Clear b/l, no wheezing/rhonchi/rales Abd: soft, nontender, +BS x4 Ext: no clubbing/cyanosis/edema Neuro: Alert, no focal deficits, moves all extremities, hand tremor noted at rest, disoriented at times Skin: warm/dry OBJ DATA Labs CBC & Chem 7: 10/25/21 18:21 10/26/21 05:38 Labs: Abnormal Lab Results 10/26/21 10/25/21 10/25/21 05:38 19:50 18:21 RBC Hgb Hct Lymph % (Auto) Lymph # (Auto) Anion Gap 7.0 L BUN 27 H Creatinine 0.4 L Glucose 109 H Phosphorus 2.3 L Urine Protein 30 mg/dl A Urine Ketones Trace A Calcium Oxalate Crystal Many A Hyaline Casts 11 H Urine Mucus Many A 10/25/21 18:21 RBC 4.37 L Hgb 13.1 L Hct 39.8 L Lymph % (Auto) 12.6 L Lymph # (Auto) 0.99 L Anion Gap BUN Creatinine Glucose Phosphorus Urine Protein Urine Ketones Calcium Oxalate Crystal Hyaline Casts Urine Mucus Meds: Medications Acetaminophen (Acetaminophen 325 Mg Tablet) 650 mg PO Q6HP PRN; Protocol PRN Reason: Per Pain Protocol/Fever > 101 Last Admin: 10/26/21 20:47 Dose: 650 mg Hydrocodone Bitart/Acetaminophen (Hydrocodone/Apap 5/325mg Tablet) 1 tab PO Q4HP PRN PRN Reason: PAIN LEVEL 3-6 Albuterol/Ipratropium (Ipratropium/Albuterol 3 Ml Ampul.Neb) 3 ml NEB Q4HP PRN PRN Reason: Shortness Of Breath Carbidopa/Levodopa (Carbidopa/Levodopa 25/100 Tablet) 1.5 tab PO 0800,1600 [facility] Last Admin: 10/26/21 16:52 Dose: 1.5 tab Carbidopa/Levodopa (Carbidopa/Levodopa 25/100 Tablet) 1 tab PO 1200,2000 [facility] Last Admin: 10/26/21 20:48 Dose: 1 tab Docusate Sodium (Docusate Sodium 100 Mg Capsule) 100 mg PO BID [facility] Last Admin: 10/26/21 20:45 Dose: 100 mg Donepezil HCl (Donepezil 10 Mg Tablet) 10 mg PO QHS [facility] Last Admin: 10/26/21 20:46 Dose: 10 mg Enoxaparin Sodium (Enoxaparin 40 Mg/0.4 Ml Syringe) 40 mg SQ DAILY [facility] Last Admin: 10/26/21 10:25 Dose: 40 mg Finasteride (Finasteride 5 Mg Tablet) 5 mg PO QDAY [facility] Last Admin: 10/26/21 10:08 Dose: 5 mg Hydralazine HCl (Hydralazine 20 Mg/Ml Vial) 0 mg IV Q2HP PRN PRN Reason: Hypertension Potassium Chloride 40 meq/ (Dextrose) 520 mls @ 130 mls/hr IV UD PRN PRN Reason: Potassium < 3 Magnesium Sulfate (Magnesium Sulfate) 2 gm in 50 mls @ 50 mls/hr IV UD PRN PRN Reason: Magnesium </= 1.6 Melatonin (Melatonin 3 Mg Tablet) 3 mg PO QHS [facility] Last Admin: 10/26/21 20:46 Dose: 3 mg Olanzapine (Olanzapine 5 Mg Tablet) 5 mg PO HS PRN PRN Reason: Agitation Ondansetron HCl (Ondansetron 4 Mg/2 Ml Vial) 4 mg IV Q4HP PRN PRN Reason: Nausea And Vomiting Polyethylene Glycol (Polyethylene Glycol 3350 17 Gm Packet) 17 gm PO DAILYP PRN PRN Reason: Constipation Potassium Chloride (Potassium Chloride 20 Meq Tablet) 40 meq PO UD PRN PRN Reason: Potssium is 3-3.5 Potassium Chloride (Potassium Chloride 20 Meq Tablet) 40 meq PO UD PRN PRN Reason: Potassium < 3 Rivastigmine Tartrate (Rivastigmine Tartrate 1.5 Mg Capsule) 1.5 mg PO BID [facility] Last Admin: 10/26/21 21:01 Dose: 1.5 mg Senna (Sennosides 1 Tablet) 2 tab PO DAILYP PRN PRN Reason: Constipation Sodium Chloride (0.9 % Sodium Chloride 10 Ml Syringe) 10 ml IV Q8 [facility] Last Admin: 10/27/21 05:45 Dose: 10 ml Tamsulosin HCl (Tamsulosin 0.4 Mg Capsule) 0.4 mg PO BID [facility] Last Admin: 10/26/21 20:47 Dose: 0.4 mg Zolpidem Tartrate (Zolpidem 5 Mg Tablet) 10 mg PO HSP PRN PRN Reason: Insomnia Last Admin: 10/26/21 20:53 Dose: 10 mg A/P Narrative A/P Narrative: A: *Falling/generalized weakness/deconditioning: *Orthostatic hypotension: likely contributing to what has been happening at home -Hold his BP meds and monitor Blood pressure. Sinemet could be contributing. *Inability to care for self at home: *Parkinson's dz w/Dementia and hallucinations/confusion at times: -Neurologist has been adjusting meds, started rivastigmine for parkinson's dementia w/hallucinations *BPH: *Volume depletion: *HTN: on ARB/Hydralazine P: -pt/ot -CM for placement -cont ARB, hold hydralazine, monitor for orthostatic hypotension -Dietary consult -f/u outpt with neurlogist for parkinson's dementia -ppx: lovenox Time Spent With Patient Time: Total time spent is greater than 50% in coordination of care (as documented) at patient's floor/unit and/or counseling patient:
[2021-10-27] MEDS ORDERED: LOSARTAN 50 MG TABLET PO SCH (09:00)
[2021-10-27] MEDS: CARBIDOPA/LEVODOPA 25/100 TABLET PO SCH ×2 (10:07→13:15)
[2021-10-27] MEDS: DOCUSATE SODIUM 100 MG CAPSULE PO SCH (10:07)
[2021-10-27] MEDS: TAMSULOSIN 0.4 MG CAPSULE PO SCH (10:08)
[2021-10-27] MEDS: FINASTERIDE 5 MG TABLET PO SCH (10:08)
[2021-10-27] MEDS: ENOXAPARIN 40 MG/0.4 ML SYRINGE SQ SCH (10:11)
[2021-10-27] MEDS: RIVASTIGMINE TARTRATE 1.5 MG CAPSULE PO SCH (10:15)
--- NOTE | 2021-10-27 10:34 | Discharge Summary ---
Discharge Provider Provider IMPORTANT FOLLOW-UP INFORMATION FOR PCP: Patient to monitor blood pressure twice daily and bring log to PCP. Hydralazine held for orthostatic hypotension. Patient information: Note initiated : 10/27/21 at 10:32 am Service Date, if different from initiated Date: [] Patient: Nomi Soria 76 y/o M admitted on 10/25/21 for Confusion, falls, failure to thrive. Chief Complaint: [] Date of admission: 10/25/21 21:25 Discharge date: 10/27/21 Primary care physician: Luis Alberto Mack DO Consults: 10/25/21 Consult to Physician [CONS] Stat Comment: Consulting Provider: William Spencer Reason For Exam: Physician to Consult COURSE Hospital Course Hospital course: History of present illness: Mr. Soria is a 76 year old M Presents the ED with history of falling and increased weakness and poor appetite. Patient lives alone and has history of Parkinson's disease with dementia and confusion with hallucination at time. His power of securities attorney and Adult Protective Services have been tried to help him at home. He has been eating and drinking less. APS concerned that he is unable to perform ADLs and needs placement. Regarding his Parkinson's disease his neurologist added Exelon for his Parkinson dementia, per discussion with PCP the neck step was possible antipsychotics. But the most immediate concern is that the patient is unable to care for himself and needs placement. Patient denies any chest pain or shortness of breath at this time. Does admit to weakness and falling. Work-up in the ED did show an elevated BUN to creatinine ratio. Vital signs are stable. 10/26 Needed frequent orientation overnight. No other acute events. Follow-up lab work. Ate most of his breakfast. 10/27 Patient seems to be feeling well. No overnight event or new complaints. A: *Falling/generalized weakness/deconditioning: *Orthostatic hypotension: likely contributing to what has been happening at home *Inability to care for self at home: *Parkinson's dz w/Dementia and hallucinations/confusion at times: -Neurologist has been adjusting meds, started rivastigmine for parkinson's dementia w/hallucinations *BPH: *Volume depletion: *HTN: on ARB/Hydralazine P: -cont ARB, hold hydralazine, monitor for orthostatic hypotension -f/u outpt with neurlogist for parkinson's dementia Discharge diagnosis: Fall and generalized weakness deconditioning orthostatic hypotension inabil Secondary discharge diagnosis: Inability care for self Parkinson's BPH from depletion history of hypertension Time Spent with Patient Time attestation: Total time spent providing and/or coordinating discharge services: Time spent: Greater than 30 minutes EXAM Constitutional Vitals: Temp Pulse Resp BP Pulse Ox O2 Del Method 97.7 F 63 20 128/85 96 10/27/21 08:00 10/27/21 08:00 10/27/21 08:00 10/27/21 08:00 10/27/21 08:00 10/27/21 04:32 Discharge Plan Patient/Caregiver Discharge Instructions Activity: increase activity as tolerated Diet: Regular Diet Activity Restrictions/Additional Instructions: Patient to monitor blood pressure twice daily and bring log to PCP. Hydralazine held for orthostatic hypotension. Prescriptions: Continued zolpidem 10 mg tablet 10 mg PO QHS Qty: 90 1RF Hold Instructions: Doctor's Order carbidopa-levodopa 25-100 mg tablet 1.5 tab PO .COMPLEX Qty: 405 Rx Instructions: 1.5 tabs PO at 0800 and 1600, and 1 tablet at 1200 and 2000; rivastigmine tartrate 1.5 mg capsule 1.5 mg PO BID losartan 50 mg Tablet 50 mg PO QDAY hydrocodone-acetaminophen 5-325 mg Tablet 1 tab PO Q8H PRN (Reason: Pain) donepezil [Aricept] 10 mg Tablet 10 mg PO QHS acetaminophen [Tylenol Extra Strength] 500 mg tablet 250 mg PO Q6H PRN (Reason: Pain) tamsulosin 0.4 mg capsule 0.4 mg PO BID Qty: 180 6RF finasteride 5 mg tablet 5 mg PO QDAY Qty: 90 3RF Discontinued hydralazine 10 mg Tablet 10 mg PO BID Follow Up Plan Follow up with: Luis Alberto Mack DO [Primary Care Provider] - Patient Disposition: Xfer SNF Prognosis: Fair Rehab Potential: Fair I certify that the patient requires SNF services: Yes Overall status at discharge: patient is progressing back to baseline Discharge Orders: Discharge Order (Routine); Ordered 10/27/21 Ordered By: William Spencer
[2021-10-27] MEDS: ACETAMINOPHEN 325 MG TABLET PO PRN (14:07)
== END 2021-10-27 14:30 ==
LOC: MEDSUR 17:50 → ED 17:50 → MEDSUR 21:28
PROVIDERS: ADMIT Internal Medicine; ATTEND Internal Medicine